=== PATIENT | male | born 2000 | race Caucasian/White ===

== ENCOUNTER 2023-07-19 13:04 | Emergency (ER) | payer BC, MEDICAID ==
[~2023-07-19] VITALS: Ht 185.4 cm; Wt 72.2 kg
[2023-07-19 14:29] VITALS: BP 108/81; RESP 18; TEMP 98; O2SAT 98
[2023-07-19 14:38] LABS: Basophils # (auto) 0 10 ^3/uL (0-0.2); Basophils % (auto) 0.6 % (0.0-2.0); Eosinophils # (auto) 0.1 10 ^3/uL (0-0.8); Hematocrit 47.9 % (41.0-53.0); Hemoglobin 16.7 g/dL (13.5-17.5); Lymphocytes # (auto) 1.9 10 ^3/uL (0.4-5.4); Lymphocytes % (auto) 26.9 % (10.0-50.0); Mean Corpuscular Hemoglobin 32.1 pg (28.0-32.0); Mean Corpuscular Hgb Conc. 34.8 g/dL (32.0-36.0); Mean Corpuscular Volume 92.3 fL (80.0-100.0); Monocytes # (auto) 0.6 10 ^3/uL (0-1.3); Monocytes % (auto) 8.6 % (0.0-12.0); Neutrophils # (auto) 4.5 10 ^3/uL (1.6-8.6); Neutrophils % (auto) 61.9 % (37.0-80.0); Nucleated Red Blood Cells % 0.1 %; Red Blood Cells 5.19 10^6/uL (4.5-5.90); Red Cell Distribution Width 12.2 % (11.8-14.3); White Blood Cell 7.2 10^3/uL (4.4-10.8)
[2023-07-19 14:46] LABS: Chloride 105 mmol/L (98-107); Potassium 3.6 mmol/L (3.5-5.1); Sodium 140 mmol/L (136-145)
[2023-07-19 14:47] LABS: Anion Gap 4 (5-15); Carbon Dioxide 31 mmol/L (20-30)
[2023-07-19 14:48] LABS: Calcium 10.4 mg/dL (8.5-10.1)
[2023-07-19 14:52] LABS: BUN/Creatinine Ratio 10.3 (10.0-20.0); Blood Urea Nitrogen 9 mg/dL (9-23); Glucose 97 mg/dL (74-106)
[2023-07-19 15:24] VITALS: PULSE 68
== END 2023-07-19 15:41 | disposition home or self-care (01) ==
LOC: ER 13:04
DX: T75.4XXA Electrocution, initial encounter (principal); Z88.0 Allergy status to penicillin; Z91.09 Other allergy status, other than to drugs and biological substances; W86.8XXA Exposure to other electric current, initial encounter; Y93.89 Activity, other specified; Y92.89 Other specified places as the place of occurrence of the external cause; Y99.8 Other external cause status
CPT/HCPCS: 36415; 71045; 80048; 84484; 85025; 93005

== ENCOUNTER 2023-07-24 13:49 | Emergency (ER) | payer BC ==
[~2023-07-24] VITALS: Ht 185.4 cm; Wt 69.9 kg
[2023-07-24 14:23] VITALS: BP 120/68; PULSE 89; RESP 18; O2SAT 98
[2023-07-24 15:26] LABS: Urine Bacteria None Seen /hpf (None Seen)
[2023-07-24 15:37] LABS: Basophils # (auto) 0.1 10 ^3/uL (0-0.2); Basophils % (auto) 0.6 % (0.0-2.0); Eosinophils # (auto) 0.2 10 ^3/uL (0-0.8); Eosinophils % (auto) 2.4 % (0.0-7.0); Hematocrit 47.3 % (41.0-53.0); Hemoglobin 16.3 g/dL (13.5-17.5); Lymphocytes # (auto) 1.8 10 ^3/uL (0.4-5.4); Lymphocytes % (auto) 22.9 % (10.0-50.0); Mean Corpuscular Hemoglobin 31.6 pg (28.0-32.0); Mean Corpuscular Hgb Conc. 34.6 g/dL (32.0-36.0); Mean Corpuscular Volume 91.4 fL (80.0-100.0); Monocytes # (auto) 0.7 10 ^3/uL (0-1.3); Monocytes % (auto) 9.3 % (0.0-12.0); Neutrophils # (auto) 5.1 10 ^3/uL (1.6-8.6); Neutrophils % (auto) 64.8 % (37.0-80.0); Nucleated Red Blood Cells % 0.1 %; Red Blood Cells 5.17 10^6/uL (4.5-5.90); Red Cell Distribution Width 12.5 % (11.8-14.3); White Blood Cell 7.8 10^3/uL (4.4-10.8)
[2023-07-24 15:47] LABS: Urine Blood Negative /uL (Negative); Urine Clarity Clear (Clear); Urine Color Light-Yellow (Yellow); Urine Protein, UAD Negative (Negative); Urine Specific Gravity 1.013 (1.001-1.035); Urine Urobilinogen Normal (Negative); Urine WBC 1 /hpf (0 - 3)
[2023-07-24 15:48] LABS: Chloride 104 mmol/L (98-107); Potassium 3.8 mmol/L (3.5-5.1); Sodium 136 mmol/L (136-145)
[2023-07-24 15:49] LABS: Anion Gap 4 (5-15); Calcium 9.9 mg/dL (8.5-10.1); Carbon Dioxide 28 mmol/L (20-30)
[2023-07-24 15:54] LABS: BUN/Creatinine Ratio 10.2 (10.0-20.0); Blood Urea Nitrogen 9 mg/dL (9-23); Glucose 88 mg/dL (74-106)
[2023-07-24] MEDS ORDERED: NEOMOIN6 EX (16:00)
[2023-07-24] MEDS ORDERED: PRED20TA2 PO (16:00)
== END 2023-07-24 16:24 | disposition home or self-care (01) ==
LOC: ER 13:49
DX: R21 Rash and other nonspecific skin eruption (principal); R10.9 Unspecified abdominal pain; Z88.0 Allergy status to penicillin; Z91.09 Other allergy status, other than to drugs and biological substances
CPT/HCPCS: 36415; 80048; 81001; 85025

== ENCOUNTER 2023-07-26 12:46 | Emergency (ER) | payer BC ==
[~2023-07-26] VITALS: Ht 185.4 cm; Wt 69.8 kg
[~2023-07-26 12:46] MED LIST: NEOMOIN6 EX; PRED20TA2 PO
[2023-07-26 13:57] VITALS: BP 126/76; PULSE 80; RESP 14; TEMP 99.2; O2SAT 97
[2023-07-26] MEDS ORDERED: IBUP-1456 PO (13:59)
[2023-07-26] MEDS ORDERED: ACYC1TAB3 PO (13:59)
[2023-07-26] MEDS ORDERED: TRIA0.02 TOP (13:59)
== END 2023-07-26 14:23 | disposition home or self-care (01) ==
LOC: ER 12:46
DX: B02.9 Zoster without complications (principal); Z88.0 Allergy status to penicillin; Z88.8 Allergy status to other drugs, medicaments and biological substances; Z79.899 Other long term (current) drug therapy